=== PATIENT | male | born 1960 ===

== ENCOUNTER → 2021-05-29 | Outpatient (CLI) | payer OTHER ==
--- NOTE | 2021-05-29 13:18 | RAD ---
EXAM: Bilateral digital diagnostic mammogram with tomosynthesis; bilateral breast sonogram. HISTORY: 61-year-old male presents with a right breast lump. TECHNIQUE: Full-field digital craniocaudal and mediolateral oblique 2D and 3D tomosynthesis images of both breasts are obtained for evaluation. Computer aided detection was applied. Sonographic imaging of both breasts targeted to sites of mammographic abnormality was also performed. COMPARISON: None. BREAST PARENCHYMAL DENSITY: Level A - Mostly fat. FINDINGS: There is increased density within the subareolar aspect of the right breast, the mammograph ic appearance of which favors gynecomastia. No suspicious calcification or architectural distortion i s seen. There is a small benign cutaneous lesion along the lateral aspect of the right breast at mid depth, the appearance of which favors a seborrheic keratosis. There is a small circumscribed nodule w ithin the 2:00 position of the left breast at mid to posterior depth. A vague imaging of the right breast demonstrates decreased echogenicity within the cerebral location, the appearance of which favors gynecomastia. There are benign axillary lymph nodes. There is no susp icious sonographic lesion. Sonographic imaging of the left targeted to sites of mammographic nodularity demonstrates a 7 mm hypo echoic lesion with internal echogenicity, the appearance of which favors a lymph node with benign fat ty hilum. This maintains normal cortical thickness. IMPRESSION: 1. Mammographic and sonographic findings consistent with right-sided gynecomastia. This corresponds w ith a possible abnormality of concern. Correlate for possible medication or endocrine related etiolog ies. 2. 7 mm intramammary lymph node at the posterior 2:00 position of the left breast. This maintains shamika ign morphology and is likely physiologic or reactive. 3. BI-RADS Category 2: Benign finding(s). RECOMMENDATION: Continued clinical follow-up of palpable abnormalities is recommended. Repeat imaging can be performed if there is continuing concern or change in physical exam findings. Negative imagin g should not preclude the decision to biopsy a palpable abnormality if there is continuing concern. If your mammogram demonstrates that you have dense breast tissue, which could hide abnormalities, and if you have other risk factors for breast cancer that have been identified, you might benefit from s upplemental screening tests that may be suggested by your ordering physician. Dense breast tissue, i n and of itself, is a relatively common condition. This information is not provided to cause undue c oncern, but rather to raise your awareness and to promote discussion with your physician regarding th e presence of other risk factors, in addition to dense breast tissue. A report of your mammography re sults will be sent to you and your physician. You should contact your physician if you have any ques tions or concerns regarding this report. Mammography is a sensitive method for finding small breast cancers, but it does not detect them all a nd is not a substitute for careful clinical examination. A negative mammogram does not negate a clin ically suspicious finding and should not result in delay in biopsying a clinically suspicious abnorma lity. PQRS compliance statement - Patient information was entered into a reminder system with a target due date for the next mammogram. "Our facility is accredited by the [employer] Mammography [employer]." Electronically signed by: Ivone Mcclure MD (05/29/2021 1:15 PM) [id number]
== END ==
LOC: MAMMO 12:19
PROVIDERS: ATTEND Nurse Practitioner Family
DX: R92.8 Other abnormal and inconclusive findings on diagnostic imaging of breast (principal)
CPT/HCPCS: 76641; 77066; G0279; 77062